=== PATIENT | female | born 1980 | race Caucasian/White ===

== ENCOUNTER 2023-11-25 07:53 | Emergency (ER) | payer BC, SELFPAY ==
[2023-11-25 08:02] VITALS: BP 124/84; PULSE 68; RESP 16; TEMP 36.1; O2SAT 99; BMI 21.6
--- NOTE | 2023-11-25 09:21 | ED.EXTPRO ---
HPI - Extremity Problem General Chief complaint: Extremity Injury, Upper Stated complaint: broken arm ? 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 She denies any distal numbness or tingling. Related Data Allergies Allergy/AdvReac Type Severity Reaction Status Date / Time No Known Allergies Allergy Verified 11/25/23 08:01 Review of Systems Review of Systems: Pertinent positives and negatives as stated in [facility] Past Medical History Source: nursing notes reviewed Onset Date is defined in the Problem List Problems that require an onset date and time if occurred within 24 hrs of arrival to the ED Aortic Dissection and Rupture; Neurologic impairment; Cardiopulmonary Arrest; Endotracheal Intubation; Insertion or Replacement of Mechanical Circulatory Assist Device Social History Social History Advance Directives: No Advance Directives Information Provided: No Physical Exam Vital Signs: Vital Signs: Last Vital Signs Temp 97 F 11/25/23 08:02 Pulse 68 11/25/23 08:02 Resp 16 11/25/23 08:02 BP 124/84 11/25/23 08:02 Pulse Ox 99 11/25/23 08:02 O2 Del Method Room Air 11/25/23 08:02 BMI result Body Mass Index 21.6 VITAL SIGNS: Reviewed. GENERAL: Well developed, well nourished, in no acute distress. HEAD: Normocephalic/atraumatic EYES: PERRLA, EOMI LUNGS: Normal breath sounds. No adventitious sounds or accessory muscle use. SpO2<99> CARDIOVASCULAR: Regular rate and rhythm without noted murmurs ABDOMEN: Soft, non-tender, non-distended with bowel sounds. MUSCULOSKELETAL: No tenderness, deformities, or effusions noted on gross inspection. EXTREMITIES: No cyanosis, clubbing or edema. RIGHT WRIST: Deformity noted over the radius, no snuffbox tenderness, good palpable pulse and good capillary refill distal. SKIN: Inspection of the skin reveals no rashes NEUROLOGIC: Alert and oriented x 4. Strength and sensation to light touch were grossly intact x 4. Medical Decision Making Medical Decision Making MDM Narrative: 43-year-old female with suspected fracture of right radius, I reviewed the x-rays which demonstrate a nondisplaced radial fracture, patient was placed in a volar splint and provided with a follow-up to Dr. Del Real. Patient also received combination analgesics for the pain. Differential Diagnosis Differential Diagnoses: The differential diagnosis associated with the presentation includes Please see the discussion above Admission/Observation Consideration of admission/observation: Escalation of care including admission/observation considered Please see the discussion above Radiology Impression Discussion of test interpretation with radiology: I have reviewed the radiologist's reading. Radiologist Impression: Please see the discussion above Discharge Plan Discharge Clinical Impression: Fracture of wrist Patient Disposition: Home, Self-Care Instructions: Wrist Fracture in Adults (ED), Splint Care (ED) Additional Instructions: 1. Tylenol 1000 mg, orally, every 6 hours as needed for pain control. Do not exceed 4000 mg within 24 hours. 2. Ibuprofen 400 mg, orally with milk or food, every 6 hours as needed for pain control. 3. Keep the splint in place until you are evaluated by Dr. Del Real, a referral has been provided to you below. 4. Please follow-up with your primary care doctor as well. Return to the ER for any worsening symptoms. Referrals: Mirtha Casey CNA [Primary Care Provider] - Sophia Del Real MD [Physician] - Stand Alone Forms: Work/School Release
== END 2023-11-25 10:13 | disposition home or self-care (01) ==
PROVIDERS: Emergency Provider Student in an Organized Health Care Education/Training Program
DX: S62.101A Fracture of unspecified carpal bone, right wrist, initial encounter for closed fracture (principal); M25.531 Pain in right wrist; Y93.66 Activity, soccer; Y93.9 Activity, unspecified; Y92.322 Soccer field as the place of occurrence of the external cause; Y99.9 Unspecified external cause status
CPT/HCPCS: 29125; 73110; 73130; 99283

== ENCOUNTER 2023-11-29 09:26 | Outpatient (REF) | payer BC, SELFPAY ==
--- NOTE | ~2023-11-29 | XR_ITS ---
EXAMINATION: XR WRIST, RIGHT CLINICAL INFORMATION: Right wrist fracture. COMPARISON: 11/25/2023 TECHNIQUE: PA, lateral, navicular, and oblique views of the right wrist. FINDINGS: Cast material obscures osseous and soft tissue detail. There is a transverse fracture of the distal right radius, unchanged in alignment and position. There is a neutral tilt of the distal radial articular surface. XR/XR wrist RT min 3V IMPRESSION: Casted views of nondisplaced transverse fracture of the distal right radius with a neutral tilt to the articular surface.
== END 2023-11-29 09:27 | disposition home or self-care (01) ==
LOC: HO.HOSX 09:26
PROVIDERS: Visit Provider Orthopaedic Surgery
DX: M25.531 Pain in right wrist (principal)
CPT/HCPCS: 25600; 73110

== ENCOUNTER 2023-11-29 11:52 | Outpatient (AMB) | payer BC, SELFPAY ==
--- NOTE | 2023-11-29 11:54 | MHC.OFFVIS ---
Intake Intake Visit Reasons: fc-fracture of right radius Intake Note: Muriel is a 43 year old right hand dominant female who presents today for a fracture care appointment for her right distal radius fracture. 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 Since the injury her pain has reduced, she explains its about a 3/10 Allergies No Known Allergies Allergy (Verified 11/29/23 11:56) HPI fc-fracture of right radius HPI Details Muriel is a 43 year old right hand dominant woman who presents for a right wrist fracture. She was playing Soccer on 11/24/23 and while blocking the ball she felt a snap in her wrist, she says this did not occur from a fall. She was seen in the ED on 11/25/23 for pain and a wrist deformity. She was placed in a volar splint and referred here for a distal radius fracture. She complains of pain today but she says this has improved since her injury. She denies any numbness or tingling. 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 [facility] Social History (Updated 11/29/23 @ 12:32 by Violeta Carmona 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 - [employer] Review of Systems Const All systems reviewed & are unremarkable except as noted in HPI and below Physical Exam Const General: cooperative, healthy appearing and no acute distress Orientation/consciousness: patient oriented x3 HEENT Head: Yes normocephalic and Yes atraumatic Eyes EOM: EOMs intact bilaterally Resp Effort & Inspection: normal respiratory effort and able to speak in complete sentences Cardio Jugular venous distension: no JVD Skin General skin exam: turgor normal Rashes: no rashes Neuro General: patient oriented x3 Extrem Other: Evaluation of Right Upper Extremity: The patient is alert, oriented, and in no acute distress Neuro: Median, Ulnar, Radial nerves motor and sensory intact and sensation is normal to the tips of all digits Vascular: Cap refill brisk ROM: She has some stiffness in her fingers as they have been splinted in extension . Mild swelling in the fingers. Fingers are nontender cap refills brisk Skin: No lacerations or abrasions. She has some mild ecchymosis, mild swelling about the wrist General: No evidence of infection. She is non-tender about her elbow No pain with proximal forearm squeeze Radiographs: 3 views of the right wrist were taken and viewed by me today in clinic. They show a minimally displaced metaphyseal fracture of the distal radius, small amount of posterior translation on the lateral, neutral alignment on the lateral view. Psych Appearance: grossly normal Affect: normal affect Attitude: cooperative Office Procedures Fracture Care Details: Fracture care right distal radius fracture [id number] Fracture Billing Code: Fracture Billing Code Assessment & Plan Assessment & Plan (1) Distal radius fracture, right: Code(s): S52.501A - Unspecified fracture of the lower end of right radius, initial encounter for closed fracture Plan Assessment & Plan: 1. Right distal radius fracture, blocked the soccer goal as goalie No fall onto the wrist DOI: 11/24/23 I educated her about this condition I discussed operative and non-operative treatment options As long as we do not see this move next week, I believe we will be able to continue to treat this non operatively. I discussed activity modification, she is to lift nothing heavier than a cellphone for at least 4 weeks. She should keep her wrist elevated to ~heart level when possible at rest She was placed in a molded short arm cast She will work on gentle finger ROM & wrist pronosupination exercises at home. She says her mother is an OT and has spoken to her already concerning her motion I discussed the effects of smoking on healing, and she will work on minimizing or avoiding her smoking habits at least for the next few weeks She will follow up sometime next week for an X-ray, in plaster, to view her alignment. This can be done with a PA If no change in fracture alignment then she can follow up in 2 weeks afterwards with X-rays, 3V R wrist, OOP. Depending on healing she may be placed in a velcro wrist splint for the following 3 weeks, removing for showering and gentle wrist range of motion exercises. She is likely to be out of soccer for at least couple months, likely longer as goalcathleen Scribed for Sophia Del Real MD by Luis Alberto Ragland, medical insurance claims specialist, on 11/29/23 at 12:45 PM, EST. Orders: Orders XR wrist RT min 3V 12/01/23 M25.539 - Pain in unspecified wrist Myra Fox PA-C XR wrist RT min 3V Today M25.531 - Pain in right wrist Sophia Del Real MD Coding Level of Care Code New Pt Level 3 (83411) Diagnoses Distal radius fracture, right S52.501A CPT Codes Fracture Care - Fracture Billing Code: Fracture Billing Code ([id number])
== END 2023-11-29 13:18 | disposition home or self-care (01) ==
PROVIDERS: Visit Provider Orthopaedic Surgery
DX: S52.501A Unspecified fracture of the lower end of right radius, initial encounter for closed fracture (principal)
CPT/HCPCS: 25600; 99204

== ENCOUNTER 2023-12-01 10:37 | Outpatient (REF) | payer BC, SELFPAY | END 2023-12-01 10:38 | disposition home or self-care (01) | LOC: HO.HOSX 10:37 | PROVIDERS: Visit Provider Physician Assistant | DX: Z13.89 Encounter for screening for other disorder (principal) ==

== ENCOUNTER 2023-12-06 09:36 | Outpatient (REF) | payer BC, SELFPAY ==
--- NOTE | ~2023-12-06 | XR_ITS ---
EXAMINATION: XR WRIST, RIGHT CLINICAL INFORMATION: Right wrist pain COMPARISON: 11/29/2023 TECHNIQUE: PA, lateral, and oblique views of the right wrist. FINDINGS: Overlying cast obscures fine bone and soft tissue detail. Distal radial impacted fracture in near anatomic alignment. Persistent fracture line is visualized. XR/XR wrist RT min 3V IMPRESSION: Distal radial impacted fracture in near anatomic alignment. Persistent fracture line is visualized.
== END 2023-12-06 09:37 | disposition home or self-care (01) ==
LOC: HO.HOSX 09:36
PROVIDERS: Visit Provider Orthopaedic Surgery
DX: S52.501A Unspecified fracture of the lower end of right radius, initial encounter for closed fracture (principal)
CPT/HCPCS: 73110

== ENCOUNTER 2023-12-06 09:51 | Outpatient (AMB) | payer BC, SELFPAY ==
--- NOTE | 2023-12-06 09:57 | A.OFFVIS_ITS ---
Intake Intake Visit Reasons: OV- RT Radius FX w/xrays in cast Intake Note: Muriel 43 yr old - hand dominant female presents today for her follow up visit for her Right distal radius fracture from 11/24/23. Last seen with Dr. Del Real who placed patient in a cast. Xrays done today with cast on to see alignment of fracture. Patient reports that she is doing well, with most of her pain being felt in the thumb. 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 She was playing Soccer on 11/24/23 and while blocking the ball she felt a snap in her wrist, she says this did not occur from a fall. She complains of pain today but primarily at the base of her thumb, and says this is managed with Ibuprofen. 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 She denies any numbness or tingling. 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 The cast appears to be well fitting and is not loose today. Sensation intact to the fingertips, cap refill brisk She can now bring her fingers close to a fist and back into full extension without difficulty. Finger swelling appears to be mostly improved. She is complaining of some pain at the base of the thumb. In examining the MCP joint, the MCP joint and IP joints are both nontender and both joints are stable on exam and not tender to testing. Smooth elbow flexion extension without pain. Good pronation, still little discomfort with supination but she can supinate to at least 45 degrees without difficulty. Radiographs: 3 views of the right wrist were taken and viewed by me today in clinic. They show a minimally displaced metaphyseal fracture of the distal radius, small amount of posterior translation on the lateral, neutral alignment on the lateral view. No change in fracture alignment compared to 11/29/23. No scaphoid fracture seen on radiographs. Office Procedures Fracture Care Details: Fracture care if not already mentioned last visit [id number] distal radius fracture Fracture Billing Code: Fracture Billing Code Assessment & Plan Assessment & Plan (1) Distal radius fracture, right: Code(s): S52.501A - Unspecified fracture of the lower end of right radius, initial encounter for closed fracture Plan Assessment & Plan: 1. Right distal radius fracture, blocked the soccer goal as goalcathleen No fall onto the wrist DOI: 11/24/23 2. Right thumb pain Primarily at the base of the thumb MCP joint nontender and stable on exam. I educated her about these conditions It looks like we can continue to manage this non operatively. I discussed activity modification, she is to lift nothing heavier than a cellphone for at least 4 weeks. She should keep her wrist elevated to ~heart level when possible at rest She will continue to wear her molded short arm cast She will work on gentle finger ROM & wrist pronosupination exercises at home. She says her mother is an OT and has spoken to her already concerning her motion I discussed the effects of smoking on healing, and she will work on minimizing or avoiding her smoking habits at least for the next few weeks She will follow up in 2 1/2 weeks with Myra with X-rays, 3V R wrist +SCAPHOID view, OOP, to rule out possible occult scaphoid fracture Depending on healing she may be placed in a velcro wrist splint to wear with daytime activities for the following 2 weeks, removing for showering and gentle wrist ROM exercises. She is likely to be out of soccer for at least couple months, likely longer as goalie Scribed for Sophia Del Real MD by Luis Alberto Ragland, medical records technician, on 12/06/23 at 10:20 AM, EST. Orders: Orders XR wrist RT min 3V Today M25.531 - Pain in right wrist Coding Level of Care Code Est Pt Level 3 (61163) Diagnoses Distal radius fracture, right S52.501A CPT Codes Fracture Care - Fracture Billing Code: Fracture Billing Code ([id number])
== END 2023-12-06 10:31 | disposition home or self-care (01) ==
PROVIDERS: Visit Provider Orthopaedic Surgery
DX: S52.501A Unspecified fracture of the lower end of right radius, initial encounter for closed fracture (principal)
CPT/HCPCS: 99024

== ENCOUNTER 2023-12-22 09:42 | Outpatient (AMB) | payer BC, SELFPAY ==
--- NOTE | 2023-12-22 09:59 | A.OFFVIS_ITS ---
Intake Vital Signs 12/22/23 10:01 Height 5 ft 5 in Weight 130 lb BMI 21.6 Handedness Right Intake Visit Reasons: OV - RT Radius Fx, DOI 11/24/23 Intake Note: Muriel is a 43 year old right hand dominant female presents today for her follow up visit for her Right distal radius fx ,11/24/23. Patient reports having some s oreness. Denies numbness and tingling. Allergies No Known Allergies Allergy (Verified 12/22/23 10:00) HPI OV - RT Radius Fx, DOI 11/24/23 HPI Details 43-year-old right hand dominant female dasia amaya presents in the office today for a follow up of a right distal radius fracture, which occurred on 11/24/2023 status post blocking the ball while playing soccer. The patient was last seen in the office on 12/06/[address] Del Real where they discussed activity modifications. She was to continue to wear the molder foam rubber short arm cast. While in the office today the patient reports some soreness. She denies numbness or tingling. She states she feels everything is going good and the hand is feeling good. 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 No ecchymosis, erythema, or edema. No tenderness to palpation over the scaphoid, tubical, or anatomical snuff box. No tenderness to palpation over the distal radius at the fracture site. Able to per form full finger flexion, extension, abduction, adduction, finger cross, okay sign, and thumbs up without deficit. Able to make a closed fist. Sensation intact. Capillary refill is brisk. Radial pulse intact. Assessment & Plan Assessment & Plan (1) Distal radius fracture, right: Code(s): S52.501A - Unspecified fracture of the lower end of right radius, initial encounter for closed fracture Qualifiers: Encounter type: subsequent encounter Plan Ms. Watt is a 43-year-old right hand dominant female who presents in the office today for a follow up of a right distal radius fracture, which occurred on 11/24/2023 status post blocking the ball while playing soccer. The patient was last seen in the office on 12/06/[address] Del Real where they discussed activity modifications. She was to continue to wear the molder foam rubber short arm cast. While in the office today the patient reports some soreness. She denies numbness or tingling. She states she feels everything is going good and the hand is feeling good. 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 The patient will be transitioned in to a velcro wrist splint, off the shelf. She should wear the splint with activities. She was instructed to continue to not lift heavy weight and then gradually progress with weight. I offered the patient occupational therapy, but the patient would like to defer at this time due to her mother working in occupational therapy. In two weeks she can begin to return to normal activities as tolerated, using pain as her guide. Follow up will be PRN, or sooner if needed. X-rays of the right wrist which were obtained while in the office today and were reviewed by me, Myra Fox PA-C, revealed routine healing of a right distal radius fracture. Orders: Orders XR wrist RT w scaphoid Today M79.641 - Pain in right hand Patient Instructions: Scribed for Myra Fox PA-C by Bernice Leach medical donation professional, on 12/22/2023 at 10:00 am, EST. Coding Level of Care Code Global (64746) Diagnoses Distal radius fracture, right S52.501A Encounter type: subsequent encounter
[2023-12-22 10:01] VITALS: BMI 21.6
== END 2023-12-22 10:45 | disposition home or self-care (01) ==
PROVIDERS: Visit Provider Physician Assistant
DX: S52.501A Unspecified fracture of the lower end of right radius, initial encounter for closed fracture (principal)
CPT/HCPCS: 99024

== ENCOUNTER 2023-12-22 10:04 | Outpatient (REF) | payer BC, SELFPAY ==
--- NOTE | ~2023-12-22 | XR_ITS ---
EXAMINATION: XR WRIST, RIGHT CLINICAL INFORMATION: Pain. COMPARISON: Radiographs dated 11/25/2023. TECHNIQUE: PA, lateral, and oblique views of the right wrist. FINDINGS: Overlapping cast material has been removed. There is continued stable alignment of a mildly displaced fracture of the distal right radial metaphysis. There is a persistent infiltrate fracture line. There is no focal soft tissue swelling, gas or foreign body. XR/XR wrist RT w scaphoid IMPRESSION: There is continued stable alignment of a mildly displaced transverse fracture of the distal right radial metaphysis. The fracture line is now faint, with good callus formation.
== END 2023-12-22 10:05 | disposition home or self-care (01) ==
LOC: HO.HOSX 10:04
PROVIDERS: Visit Provider Physician Assistant
DX: S52.501D Unspecified fracture of the lower end of right radius, subsequent encounter for closed fracture with routine healing (principal)
CPT/HCPCS: 73110